=== PATIENT | male | born 1950 | race Caucasian/White ===

== ENCOUNTER 2017-05-26 09:00 | Day surgery (SDC) | payer OTHER ==
[~2017-05-26] VITALS: Ht 177.8 cm; Wt 79.5 kg
[2017-05-26] MEDS ORDERED: GABAPENTIN 300 MG CAPSULE PO ONE (09:18)
[2017-05-26] MEDS ORDERED: ACETAMINOPHEN 500 MG TABLET PO ONE (09:18)
[2017-05-26] MEDS ORDERED: LACTATED RINGERS 1,000 ML IV SCH ×2 (09:18→09:42)
[2017-05-26] MEDS ORDERED: SIMV40TA3 PO (09:45)
[2017-05-26] MEDS ORDERED: METO25TA35 PO (09:45)
[2017-05-26 09:59] VITALS: BP 127/80
[2017-05-26 10:27] LABS: BASOPHILS # (AUTO) 0.03 x10^3/uL (0-0.1); BASOPHILS % (AUTO) 1 % (0-1); EOSINOPHILS # (AUTO) 0.05 x10^3/uL (0-0.4); EOSINOPHILS % (AUTO) 1 % (1-7); LYMPHOCYTES # (AUTO) 1.95 x10^3/uL (1-3.4); LYMPHOCYTES % (AUTO) 35 % (22-44); MD NO; MEAN CORPUSCULAR HEMOGLOBIN 32.1 pg (27.5-34.5); MEAN CORPUSCULAR HGB CONC 34.2 g/dL (33.2-36.2); MEAN CORPUSCULAR VOLUME 93.9 fL (81-97); MEAN PLATELET VOLUME 8.6 fL (7.4-10.4); MONOCYTES # (AUTO) 0.53 x10^3/uL (0.2-0.8); MONOCYTES % (AUTO) 9 % (2-9); NEUTROPHILS # (AUTO) 3.03 x10^3/uL (1.8-6.8); NEUTROPHILS % (AUTO) 54 % (42-75); PLATELET COUNT 165 x10^3/uL (130-400); RED BLOOD COUNT 4.79 x10^6/uL (4.38-5.82); RED CELL DISTRIBUTION WIDTH 12.9 % (9.4-14.8)
[2017-05-26 10:37] LABS: ANION GAP 6 mmol/L (5-15); CALCIUM 8.8 mg/dL (8.5-10.1); CHLORIDE 112 mmol/L (98-107); CREATININE 1.02 mg/dL (0.7-1.3)
[2017-05-26 10:38] LABS: ALANINE AMINOTRANSFERASE 57 U/L (12-78); ALBUMIN 3.7 g/dL (3.4-5.0)
[2017-05-26 10:40] LABS: ALKALINE PHOSPHATASE 58 U/L (45-117); BILIRUBIN,TOTAL 0.8 mg/dL (0.2-1.0); TOTAL PROTEIN 6.7 g/dL (6.4-8.2)
[2017-05-26] MEDS ORDERED: FENTANYL PF 250 MCG/5ML ONE (12:26)
[2017-05-26] MEDS ORDERED: MIDAZOLAM 1 MG/ML, 2ML ONE (12:26)
[2017-05-26] MEDS ORDERED: GLYCOPYRROLATE 0.2MG/1ML, 5ML ONE (12:27)
[2017-05-26] MEDS ORDERED: DEXAMETHASONE 4 MG/ML, 1ML ONE (12:27)
[2017-05-26] MEDS ORDERED: ROCURONIUM 10 MG/ML,10ML ONE (12:27)
[2017-05-26] MEDS ORDERED: NEOSTIGMINE 1 MG/ML, 10ML ONE (12:27)
[2017-05-26] MEDS ORDERED: PROPOFOL 10 MG/ML, 20ML ONE (12:27)
[2017-05-26] MEDS ORDERED: ONDANSETRON 2MG/ML, 2ML ONE (12:27)
[2017-05-26] MEDS ORDERED: SUCCINYLCHOLINE 20 MG/ML, 10ML ONE (12:27)
[2017-05-26] MEDS ORDERED: CEFAZOLIN 1,000 MG ONE (12:27)
[2017-05-26] MEDS ORDERED: BUPIVACAINE/PF 0.5% ONE (12:42)
[2017-05-26] MEDS ORDERED: EPINEPHRINE 1 MG/ML, 1ML ONE (12:45)
[2017-05-26] MEDS ORDERED: FENTANYL PF 100 MCG/2ML IV PRN (13:30)
[2017-05-26] MEDS ORDERED: OXYcodone 5 MG/5 ML ORAL.SOL UDC PO PRN (13:30)
[2017-05-26] MEDS ORDERED: ACETAMINOPHEN 325 MG TABLET PO PRN (13:30)
[2017-05-26] MEDS ORDERED: ONDANSETRON 2MG/ML, 2ML IVPush PRN (13:30)
[2017-05-26] MEDS ORDERED: MIDAZOLAM 1 MG/ML, 2ML IV PRN (13:30)
[2017-05-26] MEDS ORDERED: PROMETHAZINE 12.5 MG SUPP PR PRN (13:30)
[2017-05-26] MEDS ORDERED: LABETALOL 5MG/ML, 20ML IV PRN (13:30)
[2017-05-26] MEDS ORDERED: PROMETHAZINE 25 MG/ML, 1ML IV PRN (13:30)
[2017-05-26] MEDS ORDERED: hydrALAzine 20 MG/ML, 1ML IV PRN (13:30)
[2017-05-26] MEDS ORDERED: HYDROmorphone 1 MG/ML, 1ML IV PRN (13:30)
[2017-05-26] MEDS ORDERED: MEPERIDINE/PF 25MG/0.5ML IVPush PRN (13:30)
[2017-05-26] MEDS ORDERED: ALBUTEROL/IPRATROPIUM 2.5MG/0.5MG, 3 ML NPPB PRN (13:30)
[2017-05-26] MEDS ORDERED: OXYcodone 5 MG/5 ML ORAL.SOL UDC ONE (13:57)
[2017-05-26] MEDS ORDERED: ACETAMINOPHEN 650 MG/20.3 ML UDC ONE (13:57)
== END 2017-05-26 15:35 ==
LOC: OUT 09:00
PROVIDERS: ATTEND Surgery
DX: D12.8 Benign neoplasm of rectum (principal); E78.00 Pure hypercholesterolemia, unspecified; Z95.0 Presence of cardiac pacemaker
CPT/HCPCS: 36415; 45171; 80053; 85025; 88305; 93005; J0171; J0330; J0690; J1100; J2250; J2405; J2704; J2710; J3010; J3490; J7120

== ENCOUNTER → 2017-11-02 | Outpatient (CLI) | payer OTHER ==
[~2017-11-02] MED LIST: METO25TA35 PO; SIMV40TA3 PO
== END | disposition home or self-care (01) ==
LOC: CFH 14:40
PROVIDERS: ATTEND Family Medicine
DX: Z02.9 Encounter for administrative examinations, unspecified (principal)

== ENCOUNTER → 2017-11-30 | Outpatient (CLI) | payer OTHER ==
[~2017-11-30] MED LIST changes: +ASPI-621 PO; +CELE200C PO; +DOCU-131 PO; +LIDOCAINE-MPF 2%, 2ML ONE; +MELO15TA6 PO; +METO-95 PO; +ONDA4TAB10 PO; +OXYC5CAP2 PO; +ROPivacaine/PF 0.2%, 10 ML ONE; +SODIUM BICARBONATE 4.0%, 5ML ONE; +TRAM50TA2 PO
== END | disposition home or self-care (01) ==
LOC: RAD 11-10 13:45
PROVIDERS: ATTEND Family Medicine
DX: M17.11 Unilateral primary osteoarthritis, right knee (principal); M71.21 Synovial cyst of popliteal space [Baker], right knee
CPT/HCPCS: 73580; 73701; 85810; 87070; 87205; 89050; 89060; J2795; J3490; Q9965

== ENCOUNTER → 2017-12-28 | Outpatient (CLI) | payer OTHER ==
[~2017-12-28] MED LIST changes: -LIDOCAINE-MPF 2%, 2ML ONE; -ROPivacaine/PF 0.2%, 10 ML ONE; -SODIUM BICARBONATE 4.0%, 5ML ONE
[2017-12-28 16:26] LABS: MICROSCOPIC NOT IND
[2017-12-28 16:28] LABS: BASOPHILS # (AUTO) 0.05 x10^3/uL (0-0.1); BASOPHILS % (AUTO) 1 % (0-1); EOSINOPHILS # (AUTO) 0.09 x10^3/uL (0-0.4); EOSINOPHILS % (AUTO) 1 % (1-7); LYMPHOCYTES # (AUTO) 2.25 x10^3/uL (1-3.4); LYMPHOCYTES % (AUTO) 27 % (22-44); MD NO; MEAN CORPUSCULAR HEMOGLOBIN 31.6 pg (27.5-34.5); MEAN CORPUSCULAR VOLUME 93.2 fL (81-97); MEAN PLATELET VOLUME 8.1 fL (7.4-10.4); MONOCYTES # (AUTO) 1.05 x10^3/uL (0.2-0.8); MONOCYTES % (AUTO) 12 % (2-9); NEUTROPHILS # (AUTO) 5.07 x10^3/uL (1.8-6.8); NEUTROPHILS % (AUTO) 60 % (42-75); PLATELET COUNT 310 x10^3/uL (130-400); RED BLOOD COUNT 4.39 x10^6/uL (4.38-5.82); RED CELL DISTRIBUTION WIDTH 13.6 % (9.4-14.8)
[2017-12-28 16:29] LABS: CULTURE INDICATED? NO
[2017-12-28 16:36] LABS: ANION GAP 7 mmol/L (5-15); CALCIUM 9.2 mg/dL (8.5-10.1); CHLORIDE 106 mmol/L (98-107); CREATININE 0.76 mg/dL (0.7-1.3); INTERNATIONAL NORMALIZED RATIO 1.01 (0.93-1.1); PROTHROMBIN TIME 10.4 Seconds (9.6-11.5)
[2017-12-28 17:16] LABS: HEMOGLOBIN A1C 5.5 % (4.2-6.3)
== END | disposition home or self-care (01) ==
LOC: STAR 15:12
PROVIDERS: ATTEND Orthopaedic Surgery
DX: Z01.818 Encounter for other preprocedural examination (principal); M17.11 Unilateral primary osteoarthritis, right knee; M25.561 Pain in right knee
CPT/HCPCS: 36415; 80048; 81003; 83036; 85025; 85610; 85730; 87081; 87147; 87806; G0475

== ENCOUNTER 2018-01-03 12:59 | Observation (INO) | payer OTHER ==
[~2018-01-03] VITALS: Ht 177.8 cm; Wt 83.8 kg
[~2018-01-03 12:59] MED LIST changes: -ASPI-621 PO; -CELE200C PO; -DOCU-131 PO; +EPINEPHRINE 1 MG/ML, 1ML ONE; +KETOROLAC 60 MG/2 ML ONE; -ONDA4TAB10 PO; -OXYC5CAP2 PO; +ROPIvacaine/PF 0.2%, 20 ML ONE; -TRAM50TA2 PO; +TRANEXAMIC ACID 100 MG/ML, 10ML ONE
[2018-01-03] MEDS ORDERED: FENTANYL PF 250 MCG/5ML ONE (13:24)
[2018-01-03] MEDS ORDERED: MIDAZOLAM 1 MG/ML, 2ML ONE (13:24)
[2018-01-03] MEDS ORDERED: ROPIvacaine/PF 0.2%, 20 ML ONE (13:25)
[2018-01-03] MEDS ORDERED: PROPOFOL 10 MG/ML, 20ML ONE (13:25)
[2018-01-03] MEDS ORDERED: CEFAZOLIN 1,000 MG ONE ×2 (13:26)
[2018-01-03] MEDS ORDERED: WATER-INJECTION,STERILE 10 ML IV ONE (13:26)
[2018-01-03] MEDS ORDERED: ROCURONIUM 10MG/ML,5ML ONE (13:27)
[2018-01-03] MEDS ORDERED: GLYCOPYRROLATE 0.4 MG/2 ML, 2ML ONE (13:28)
[2018-01-03] MEDS ORDERED: NEOSTIGMINE 1 MG/ML, 10ML ONE (13:28)
[2018-01-03] MEDS ORDERED: LACTATED RINGERS 1,000 ML IV SCH (13:30)
[2018-01-03] MEDS ORDERED: GABAPENTIN 300 MG CAPSULE PO ONE (13:30)
[2018-01-03] MEDS ORDERED: ACETAMINOPHEN 500 MG TABLET PO ONE (13:30)
[2018-01-03 14:03] VITALS: BP 125/76
[2018-01-03] MEDS ORDERED: OXYcodone 5 MG/5 ML ORAL.SOL UDC PO PRN (15:00)
[2018-01-03] MEDS ORDERED: ACETAMINOPHEN 325 MG TABLET PO PRN ×2 (15:00→16:00)
[2018-01-03] MEDS ORDERED: hydrALAzine 20 MG/ML, 1ML IV PRN (15:00)
[2018-01-03] MEDS ORDERED: ONDANSETRON 2MG/ML, 2ML IV PRN ×2 (15:00→16:00)
[2018-01-03] MEDS ORDERED: LABETALOL 5MG/ML, 20ML IV PRN (15:00)
[2018-01-03] MEDS ORDERED: PROMETHAZINE 25 MG/ML, 1ML IV PRN (15:00)
[2018-01-03] MEDS ORDERED: ONDANSETRON ODT 8 MG PO PRN (15:00)
[2018-01-03] MEDS ORDERED: PROMETHAZINE 25 MG/ML, 1ML IM PRN ×3 (15:00→16:00)
[2018-01-03] MEDS ORDERED: MORPHINE SULFATE 4 MG/ML, 1ML IVPush PRN (15:00)
[2018-01-03] MEDS ORDERED: HYDROmorphone 1 MG/ML, 1ML IV PRN (15:00)
[2018-01-03] MEDS ORDERED: MEPERIDINE/PF 25MG/0.5ML IVPush PRN (15:00)
[2018-01-03] MEDS ORDERED: PROMETHAZINE 12.5 MG SUPP PR PRN (16:00)
[2018-01-03] MEDS ORDERED: MAGNESIUM HYDROXIDE 8%, 30ML UDC PO PRN (16:00)
[2018-01-03] MEDS ORDERED: ONDANSETRON 4 MG TABLET PO PRN (16:00)
[2018-01-03] MEDS ORDERED: DIPHENHYDRAMINE 50 MG CAPSULE PO PRN (16:00)
[2018-01-03] MEDS ORDERED: SENNA/DOCUSATE TABLET PO PRN (16:00)
[2018-01-03] MEDS ORDERED: ALUMINUM/MAG/SIMETHICONE 30 ML UDC PO PRN (16:00)
[2018-01-03] MEDS ORDERED: BISACODYL 10 MG SUPP PR PRN (16:00)
[2018-01-03] MEDS ORDERED: PHENYLEPHRINE 10 MG/ML ONE (16:03)
[2018-01-03] MEDS ORDERED: TRANEXAMIC ACID 100 MG/ML, 10ML ONE ×2 (16:35)
[2018-01-03] MEDS: FENTANYL PF 100 MCG/2ML IV PRN ×2 (17:45→17:58)
[2018-01-03] MEDS ORDERED: MORPHINE SULFATE 4 MG/ML, 1ML ONE (17:47)
[2018-01-03] MEDS ORDERED: FENTANYL PF 100 MCG/2ML ONE (17:47)
[2018-01-03] MEDS ORDERED: OXYcodone 5 MG/5 ML ORAL.SOL UDC ONE (17:48)
[2018-01-03] MEDS ORDERED: TRANEXAMIC ACID 1,000 MG in SODIUM CHLORIDE 0.9% 100 ML IVPB ONE (18:00)
[2018-01-03 18:47] VITALS: BP 132/75
[2018-01-03] MEDS: D5%-0.45NACL+KCL 20MEQ 1,000 ML IV SCH (20:42)
[2018-01-03] MEDS: METOPROLOL SUCCINATE 100 MG TAB.ER.24H PO SCH (21:43)
[2018-01-03] MEDS: DOCUSATE 100 MG CAPSULE PO SCH (21:43)
[2018-01-03] MEDS: OXYcodone IR 5MG TABLET PO PRN (21:43)
[2018-01-04] MEDS: CEFAZOLIN PMX 1GM/50ML 50 ML IVPB SCH ×2 (00:01→08:26)
[2018-01-04 00:16] VITALS: BP 114/67
[2018-01-04] MEDS: OXYcodone IR 5MG TABLET PO PRN ×2 (01:47→05:48)
[2018-01-04] MEDS: D5%-0.45NACL+KCL 20MEQ 1,000 ML IV SCH ×2 (01:51→11:51)
[2018-01-04 04:06] VITALS: BP 109/69
[2018-01-04] MEDS ORDERED: HYDROmorphone 2 MG/ML, 1ML ONE ×2 (05:43→09:44)
[2018-01-04] MEDS: HYDROmorphone 1 MG/ML, 1ML IV PRN ×2 (05:48→09:47)
[2018-01-04] MEDS ORDERED: ASPIRIN 81 MG TABLET EC PO SCH (06:00)
[2018-01-04] MEDS ORDERED: DEXAMETHASONE 4 MG/ML, 1ML IVPush SCH (06:00)
[2018-01-04 07:44] VITALS: BP 129/67
[2018-01-04] MEDS: METOPROLOL SUCCINATE 100 MG TAB.ER.24H PO SCH (08:27)
[2018-01-04] MEDS: DOCUSATE 100 MG CAPSULE PO SCH (08:27)
[2018-01-04] MEDS ORDERED: DOCU-131 PO (08:51)
[2018-01-04] MEDS ORDERED: ONDA4TAB10 PO (08:51)
[2018-01-04] MEDS ORDERED: TRAM50TA2 PO (08:51)
[2018-01-04] MEDS ORDERED: CELE200C PO (08:51)
[2018-01-04] MEDS ORDERED: ASPI-621 PO (08:51)
[2018-01-04] MEDS ORDERED: OXYC5CAP2 PO (08:51)
[2018-01-04] MEDS ORDERED: TAMSULOSIN 0.4 MG CAP.ER.24H PO SCH (09:00)
[2018-01-04] MEDS ORDERED: SIMVASTATIN 40 MG TABLET PO SCH (09:00)
[2018-01-04 13:23] VITALS: BP 129/67
[2018-01-04] MEDS ORDERED: KETOROLAC 30 MG/1 ML IV SCH (16:00)
== END 2018-01-04 14:30 | disposition home or self-care (01) ==
LOC: OR 12:59 → ORIP 15:51 → 4NOR 18:41 → DCLOUNGE 01-04 14:12
PROVIDERS: ADMIT Orthopaedic Surgery; ATTEND Orthopaedic Surgery
DX: M17.11 Unilateral primary osteoarthritis, right knee (principal); M71.21 Synovial cyst of popliteal space [Baker], right knee; Z79.899 Other long term (current) drug therapy
CPT/HCPCS: 27447; 36415; 73560; 85014; 85018; 96365; 96366; 96375; 96376; 97116; 97150; 97161; 97165; C1713; C1776; G0378; G8978; G8979; G8980; J0171; J0690; J1100; J1170; J1885; J2250; J2370; J2704; J2710; J2795; J3010; J3480; J7120

== ENCOUNTER → 2020-01-22 | Outpatient (CLI) | payer BC ==
[~2020-01-22] MED LIST changes: +ASPI81TA45 PO; +CELE200C PO; +DOCU-131 PO; -EPINEPHRINE 1 MG/ML, 1ML ONE; -KETOROLAC 60 MG/2 ML ONE; +ONDA4TAB10 PO; +OXYC5CAP2 PO; +REGADENOSON 0.4 MG/5 ML SYRINGE ONE; -ROPIvacaine/PF 0.2%, 20 ML ONE; +SIMV40TA20 PO; -SIMV40TA3 PO; +TRAM50TA2 PO; -TRANEXAMIC ACID 100 MG/ML, 10ML ONE
== END | disposition home or self-care (01) ==
LOC: CFH 08:11
PROVIDERS: ATTEND Internal Medicine Cardiovascular Disease
DX: I49.3 Ventricular premature depolarization (principal)
CPT/HCPCS: 78452; 93017; A9502; J2785